=== PATIENT | female | born 1965 | race Caucasian/White ===

== ENCOUNTER 2022-08-23 13:53 | Emergency (ER) | payer BC, SELFPAY ==
--- NOTE | ~2022-08-23 | MR_ITS ---
EXAMINATION: MR BRAIN WITHOUT CONTRAST CLINICAL INFORMATION: Severe headache COMPARISON: MRI brain 11/07/2010 TECHNIQUE: MRI of the brain was obtained using routine sequences without contrast. FINDINGS: Interval evolution of a now chronic infarct within the right splenium of the corpus callosum with resultant previously seen diffusion restriction and decreased now faint T2 signal abnormality. No new acute infarct. No acute infarct. No acute intracranial hemorrhage or extra-axial fluid collection. The ventricles and sulci are normal in size and configuration without significant volume loss or hydrocephalus. No mass lesion, mass effect, or herniation pattern. Normal intracranial arterial and dural venous sinus flow voids. Normal appearance of the midline structures. The orbits are grossly unremarkable. Decreased size of previously seen retention cyst along the lateral wall of the right sphenoid sinus now with a small air-fluid level, otherwise scattered trace paranasal sinus mucosal thickening. No mastoid effusion. Normal marrow signal. Incompletely imaged cervical spondylosis, including a disc osteophyte complex at C3-C4 effacing the ventral thecal sac and encroaching upon the ventral surface of the cord. MR/MR head/brain wo con IMPRESSION: Interval evolution of a now chronic infarct within the right splenium of the corpus callosum. No new acute intracranial process. Decreased size of previously seen retention cyst along the lateral wall of the right sphenoid sinus now with a small air-fluid level
--- NOTE | ~2022-08-23 | CT_ITS ---
EXAMINATION: CT HEAD WITHOUT CONTRAST CLINICAL INFORMATION: headache x 4 days, hx of CVA in 2012 COMPARISON: MRI of the brain 11/07/2010. CT head 11/06/2010 TECHNIQUE: Contiguous axial imaging was performed from the skull base to vertex without intravenous administration of contrast. Coronal and sagittal reformatted images are performed at the CT scanner. [This CT examination was performed using dose optimization techniques as appropriate, variously including the following: *Automated exposure control *Adjustment of mA and/or kV according to patient size (this includes techniques or standardized protocols for targeted exams where dose is matched to indication/reason for exam; i.e. extremities or head) *Use of iterative reconstruction technique] DLP: 571 mGy-cm. FINDINGS: There is no evidence of acute intracranial hemorrhage or territorial infarction. No abnormal mass-effect or midline shift is seen. Jennings to white matter differentiation is well preserved. No extra-axial fluid collections are identified. The ventricles are normal in size. There is no abnormal attenuation within the brain parenchyma. There is no osseous abnormality. The mastoid air cells and visualized portions of the paranasal sinuses are well-aerated. CT/CT head/brain wo IV con IMPRESSION: No acute intracranial pathology.
--- NOTE | 2022-08-23 14:02 | ED.GENADULT ---
HPI - General Adult General Chief complaint: Headache Stated complaint: headaches, right side of face is warm Time Seen by Provider: 08/23/22 16:17 Source: patient Mode of arrival: ambulatory Limitations: no limitations History of Present Illness HPI narrative: 57-year-old female history of CVA in 2010 came in from PCP office for evaluation of 4 days of intermittent headache and a, patient feels bilateral pressure on her face, bilateral tingling of both arms, feels pressure on the face, pressure in both years, no runny nose, no sneezing, no productive, no fever, no chills. Patient gets headache at the regular basis but her doctor sent her to the ER because her history of stroke. No weakness, no numbness, no gait change, no speech change. Light and noise worsening the headache, no neck stiffness, no photophobia. Related Data Previous Rx's Medication Instructions Recorded azithromycin 500 mg tablet 500 mg PO DAILY 5 days #5 tabs 08/23/22 (Zithromax) Allergies Allergy/AdvReac Type Severity Reaction Status Date / Time Penicillins [PCN] Allergy Hives Verified 08/23/22 14:03 From AUGMENTIN Allergy Unknown FEVER Uncoded 08/23/22 14:03 From Augmentin Allergy Unknown FEVER Uncoded 08/23/22 14:03 Review of Systems Review of Systems: All other systems are reviewed and are negative Constitutional: Reports as per HPI and Reports no additional constitutional complaints Eyes: Reports as per HPI and Reports no additional eye complaints Reports system reviewed and no additional complaints, except as documented Cardiovascular: Reports as per HPI and Reports no additional cardiovascular complaints Respiratory: Reports as per HPI and Reports no additional respiratory complaints Gastrointestinal: Reports as per HPI and Reports no additional gastrointestinal complaints Genitourinary: Reports no additional female genitourinary complaints Musculoskeletal: Reports no additional musculoskeletal complaints Skin/Breast: Reports system reviewed and no additional complaints, except as docu Psychiatric: Reports no additional psychiatric complaints Endocrine: Reports no additional endocrine complaints Hematologic/Lymphatic: Reports no additional hematologic/lymphatic complaints Allergic/Immunologic: Reports no additional allergic/immunologic complaints Reports system reviewed and no additional complaints, except as documented and Reports Abnormal speech present [facility] Social History Social History Advance Directives: No Advance Directives Information Provided: Yes Physical Exam ED Vital Signs: Vital Signs - 24 hr 08/23/22 14:04 08/23/22 16:32 08/23/22 20:36 Temperature 97 F 98.7 F 98.3 F Pulse Rate 87 68 73 Respiratory Rate 18 18 16 Blood Pressure 145/82 H 143/77 H 146/74 H Pulse Oximetry 98 99 98 Oxygen Delivery Method Room Air Room Air Room Air BMI result Body Mass Index 35.3 Vital signs have been reviewed as appeared to be correct. Blood pressure normal. Heart rate normal. Respiration rate normal. Temperature normal. Oxygen saturation normal. Appearance: Alert. Oriented X3. No acute distress. Head: Normal external exam. Normocephalic. Atraumatic. No Salvador signs noted. No raccoon eyes noted Eyes: PERRLA. EOMI. Conjunctiva and sclera normal. Eyelids normal. ENT: TM's Normal. Pharynx normal. Uvula midline. Moist mucous membranes. No trismus noted. No drooling noted. No muffled voice noted. Neck: Normal inspection. Neck supple. FROM. No adenopathy. Thyroid Normal. No meningeal signs. No neck mass noted. CVS: Normal heart rate and rhythm. Heart sound normal. No murmurs noted. Pulses normal throughout. Respiratory: No respiratory distress. Painless inspiration. Breath sounds normal. No wheezes/rales/rhonchi noted. Chest nontender. No accessory muscle usage noted or decreased air movement noted. Abdomen: Soft and nontender. Bowel sounds normal in all 4 quadrants. No distention noted. No organomegaly noted. No visible injury noted. Back: No CVA tenderness. Full range of motion noted. Skin: Skin warm and dry. Normal skin color. Normal skin turgor. No rashes/lesions/lacerations noted. Extremities: No lower extremity edema. Extremities exhibit normal range of motion. Extremities nontender. Neuro: Oriented X 3. Cranial nerve exam: II-XII are grossly intact No motor deficit. No sensory deficit. Reflexes normal. NIH Stroke Scale Time: 16:32 Level of Consciousness: Alert Level of Consciousness Questions: Answers both questions correctly Level of Consciousness Commands: Performs both tasks correctly Best Gaze: Normal Visual: No visual loss Facial Palsy: Normal Motor Arm (Right): No drift Motor Arm (Left): No drift Motor Leg (Right): No drift Motor Leg (Left): No drift Limb Ataxia: Absent Sensory: Normal Best Language: No aphasia Dysarthia: Normal Extinction and Inattention: No abnormality Score: 0 Course Course Course Narrative: This is an RME: Additional HPI, ROS, PE not included below will be deferred to primary provider. This is a [id number], with a hx of CVA in 2011 not on anticoagulants, HLD, HTN, fibromyalgia, chronic back pain, presenting to the emergency department with complaints of headache starting saturday night. Believed that she had a sinus infection originally. States that she is feeling tingling in bilateral hands. Headache is intermittent, waxing and waning in pain. VSS. No focal deficits on examination. Plan: Labs, CT head Reevaluation(s) Reevaluation #1: Normal neuro exam, CT head/MRI had are unremarkable for acute infarction, patient do not have a typical exam for sinusitis will start the patient on Zithromax and follow up with her PCP. Time: 19:14 Medications Administered Discontinued Medications Generic Name Dose Route Start Last Admin Trade Name Freq PRN Reason Stop Dose Admin Azithromycin 500 mg 08/23/22 16:33 08/23/22 17:15 Azithromycin 500 Mg Tablet PO 08/23/22 16:34 500 mg ONCE ONE Administration Lorazepam 1 mg 08/23/22 19:43 08/23/22 19:46 Lorazepam 1 Mg Tablet PO 08/23/22 19:44 1 mg ONCE ONE Administration Medical Decision Making Differential Diagnosis Differential Diagnoses: The differential diagnosis associated with the presentation includes (Hemorrhagic stroke, ischemic stroke, sinusitis, electrolyte abnormalities, severe anemia.) Admission/Observation Consideration of admission/observation: Escalation of care including admission/observation considered Lab Data MDM Lab Attestation statement: I reviewed the patient's lab results. 08/23/22 14:23 08/23/22 14:23 Labs: Lab Results 08/23/22 08/23/22 08/23/22 Range/Units 14:23 14:23 14:23 WBC 9.7 (4.8-10.8) X10*3/uL RBC 4.92 (4.20-5.50) X10*6/uL Hgb 14.8 (12.0-16.0) g/dl Hct 44.5 (37.0-47.0) % MCV 90.4 (80.0-98.0) fL MCH 30.1 (27.0-33.0) pg MCHC 33.3 (31.0-35.0) g/dl RDW 13.8 (11.0-16.0) % Plt Count 333 (160-400) X10*3/uL MPV 9.4 (9.4-12.3) fL Immature Gran % (Auto) 0.4 (0.0-0.4) % Neut % (Auto) 43.0 L (45-73) % Lymph % (Auto) 43.6 H (20-40) % Barton % (Auto) 8.3 (2-11) % Eos % (Auto) 3.5 (0-4) % Baso % (Auto) 1.2 (0-2) % Lymph # (Auto) 4.2 (1.2-4.9) X10*3/uL Barton # (Auto) 0.8 (0.1-1.2) X10*3/uL Eos # (Auto) 0.3 (0.0-0.4) X10*3/uL Baso # (Auto) 0.1 (0.0-0.2) X10*3/uL Abs Immat Gran (auto) 0.04 H (0.00-0.03) X10*3/uL Absolute Neuts (auto) 4.2 (2.0-8.3) x10*3/uL Absolute Nucleated RBC 0.000 (0.0-0.012) X10*3/uL Nucleated RBC % (auto) 0.0 (0.0-0.2) /100WBC PT 10.4 (10.0-13.1) SEC INR 0.9 (0.9-1.1) APTT 29.6 (26.0-36.4) SEC Sodium 141 (135-145) mmol/L Potassium 4.1 (3.3-5.1) mmol/L Chloride 106 (96-108) mmol/L Carbon Dioxide 29 (22-29) mmol/L Anion Gap 10 L (12-20) BUN 12 (9-16) mg/dL Creatinine 0.87 (0.5-1.4) mg/dL Estim Creat Clear Calc 66.5 Estimated GFR > 60 Random Glucose 90 (60-115) mg/dL Calcium 9.4 (8.4-10.2) mg/dL Magnesium (1.6-2.6) mg/dL Total Bilirubin 0.3 (0.0-1.0) mg/dL Direct Bilirubin 0.1 (0.0-0.5) mg/dL AST 41 H (5-31) U/L ALT 45 H (0-31) U/L Alkaline Phosphatase 92 (39-117) U/L Total Protein 8.1 H (6.5-8.0) g/dL Albumin 4.5 (3.5-5.0) g/dL Influenza Type A (PCR) (Negative) Influenza Type B (PCR) (Negative) RSV RNA Qual (PCR) (Negative) SARS-CoV-2 RNA (RT-PCR) (Negative) 08/23/22 08/23/22 Range/Units 14:23 16:52 WBC (4.8-10.8) X10*3/uL RBC (4.20-5.50) X10*6/uL Hgb (12.0-16.0) g/dl Hct (37.0-47.0) % MCV (80.0-98.0) fL MCH (27.0-33.0) pg MCHC (31.0-35.0) g/dl RDW (11.0-16.0) % Plt Count (160-400) X10*3/uL MPV (9.4-12.3) fL Immature Gran % (Auto) (0.0-0.4) % Neut % (Auto) (45-73) % Lymph % (Auto) (20-40) % Barton % (Auto) (2-11) % Eos % (Auto) (0-4) % Baso % (Auto) (0-2) % Lymph # (Auto) (1.2-4.9) X10*3/uL Barton # (Auto) (0.1-1.2) X10*3/uL Eos # (Auto) (0.0-0.4) X10*3/uL Baso # (Auto) (0.0-0.2) X10*3/uL Abs Immat Gran (auto) (0.00-0.03) X10*3/uL Absolute Neuts (auto) (2.0-8.3) x10*3/uL Absolute Nucleated RBC (0.0-0.012) X10*3/uL Nucleated RBC % (auto) (0.0-0.2) /100WBC PT (10.0-13.1) SEC INR (0.9-1.1) APTT (26.0-36.4) SEC Sodium (135-145) mmol/L Potassium (3.3-5.1) mmol/L Chloride (96-108) mmol/L Carbon Dioxide (22-29) mmol/L Anion Gap (12-20) BUN (9-16) mg/dL Creatinine (0.5-1.4) mg/dL Estim Creat Clear Calc Estimated GFR Random Glucose (60-115) mg/dL Calcium (8.4-10.2) mg/dL Magnesium 2.1 (1.6-2.6) mg/dL Total Bilirubin (0.0-1.0) mg/dL Direct Bilirubin (0.0-0.5) mg/dL AST (5-31) U/L ALT (0-31) U/L Alkaline Phosphatase (39-117) U/L Total Protein (6.5-8.0) g/dL Albumin (3.5-5.0) g/dL Influenza Type A (PCR) NEGATIVE (Negative) Influenza Type B (PCR) NEGATIVE (Negative) RSV RNA Qual (PCR) NEGATIVE (Negative) SARS-CoV-2 RNA (RT-PCR) NEGATIVE (Negative) Independent Interpretation I performed an independent interpretation of an: CT Scan (Head CT: No acute pathology.) Interpretation: MRI of the brain:nterval evolution of a now chronic infarct within the right splenium of the corpus callosum. No new acute intracranial process. Decreased size of previously seen retention cyst along the lateral wall of the right sphenoid sinus now with a small air-fluid level ? Radiology Impression Discussion of test interpretation with radiology: I have reviewed the radiologist's reading. Discharge Plan Discharge Clinical Impression: Headache, Sinusitis Patient Disposition: Home, Self-Care Instructions: Sinusitis (ED) Prescriptions: New azithromycin [Zithromax] 500 mg tablet 500 mg PO DAILY 5 Days Qty: 5 0RF Referrals: Denise Case MD [Primary Care Provider] -
[2022-08-23 14:04] VITALS: BP 145/82; PULSE 87; RESP 18; TEMP 36.1; O2SAT 98; BMI 35.3
[2022-08-23 14:27] LABS: MANUAL DIFF FLAG NO
[2022-08-23 14:31] LABS: Basophils Absolute Auto 0.1 X10*3/uL (0.0-0.2); Basophils Percent Auto 1.2 % (0-2); Eosinophils Absolute Auto 0.3 X10*3/uL (0.0-0.4); Eosinophils Percent Auto 3.5 % (0-4); Hematocrit 44.5 % (37.0-47.0); Hemoglobin 14.8 g/dl (12.0-16.0); Imm Gran Abs Auto 0.04 X10*3/uL (0.00-0.03); Imm Gran Pct Auto 0.4 % (0.0-0.4); Lymphocytes Absolute Auto 4.2 X10*3/uL (1.2-4.9); Lymphocytes Percent Auto 43.6 % (20-40); Mean Corpuscular HGB Conc 33.3 g/dl (31.0-35.0); Mean Corpuscular Hemoglobin 30.1 pg (27.0-33.0); Mean Corpuscular Volume 90.4 fL (80.0-98.0); Mean Platelet Volume 9.4 fL (9.4-12.3); Monocytes Absolute Auto 0.8 X10*3/uL (0.1-1.2); Monocytes Percent Auto 8.3 % (2-11); Neutrophils Absolute Auto 4.2 x10*3/uL (2.0-8.3); Platelet Count 333 X10*3/uL (160-400); Red Blood Count 4.92 X10*6/uL (4.20-5.50); Red Cell Distribution Width 13.8 % (11.0-16.0); White Blood Count 9.7 X10*3/uL (4.8-10.8)
[2022-08-23 14:39] LABS: INTERNATIONAL NORM RATIO 0.9 (0.9-1.1); Prothrombin Time 10.4 SEC (10.0-13.1)
[2022-08-23 14:42] LABS: Partial Thromboplastin Time 29.6 SEC (26.0-36.4)
[2022-08-23 14:46] LABS: Magnesium 2.1 mg/dL (1.6-2.6)
[2022-08-23 14:51] LABS: Alanine Aminotransferase 45 U/L (0-31); Albumin Level 4.5 g/dL (3.5-5.0); Alkaline Phosphatase 92 U/L (39-117); Anion Gap 10 (12-20); Aspartate Amino Transferase 41 U/L (5-31); Bilirubin Direct 0.1 mg/dL (0.0-0.5); Bilirubin Total 0.3 mg/dL (0.0-1.0); Blood Urea Nitrogen 12 mg/dL (9-16); Calcium 9.4 mg/dL (8.4-10.2); Carbon Dioxide 29 mmol/L (22-29); Chloride 106 mmol/L (96-108); Creatinine Clr Calc Pharmacy 66.5; Estimated Glomerular Filt Rate > 60; Glucose Random 90 mg/dL (60-115); Potassium 4.1 mmol/L (3.3-5.1); Sodium 141 mmol/L (135-145); Total Protein 8.1 g/dL (6.5-8.0)
[2022-08-23 16:32] VITALS: BP 143/77; PULSE 68; RESP 18; TEMP 37.1; O2SAT 99
[2022-08-23] MEDS: Azithromycin 500 MG TABLET PO (17:15)
[2022-08-23 17:43] LABS: Influenza A PCR NEGATIVE (Negative); Influenza B PCR NEGATIVE (Negative); Resp Syncy Virus RNA Qual PCR NEGATIVE (Negative); SARS COV2 PCR INHOUSE NEGATIVE (Negative)
--- NOTE | 2022-08-23 19:24 | PC.NURSE ---
Pt ca&ox3, no signs of distress. Resting comfortably. wctm.
[2022-08-23] MEDS: LORazepam 1 MG TABLET PO (19:46)
[2022-08-23 20:36] VITALS: BP 146/74; PULSE 73; RESP 16; TEMP 36.8; O2SAT 98
== END 2022-08-23 21:22 | disposition home or self-care (01) ==
PROVIDERS: Physician Assistant Medical; Emergency Provider Emergency Medicine; PCP Internal Medicine
DX: R51.9 Headache, unspecified (principal); J32.9 Chronic sinusitis, unspecified; Z20.822 Contact with and (suspected) exposure to COVID-19; Z20.828 Contact with and (suspected) exposure to other viral communicable diseases; R20.2 Paresthesia of skin; I10 Essential (primary) hypertension; E78.5 Hyperlipidemia, unspecified; M79.7 Fibromyalgia; R29.700 NIHSS score 0; Z86.73 Personal history of transient ischemic attack (TIA), and cerebral infarction without residual deficits; Z79.899 Other long term (current) drug therapy
CPT/HCPCS: 0241U; 36415; 70450; 70551; 80048; 80076; 83735; 85025; 85610; 85730; 99284; 99285

== ENCOUNTER 2023-08-26 06:29 | Day surgery (SDC) | payer BC, SELFPAY ==
[2023-08-14 10:21] VITALS: BMI 34.5
--- NOTE | 2023-08-22 11:57 | P.CONAN_ITS ---
HPI - Anesthesia Eval Consult details Narrative: 58yo F for Left Cataract Extraction IOL Insertion Medically optimized No previous on record ON LICENSE OF [facility] Past Medical History Medical History (Updated 08/14/23 @ 10:20 by Almita Villarreal RN) Family history of anesthesia complication Back pain Arthritis Factor V Leiden Hyperlipemia Renal stones RLS (restless legs syndrome) Migraines Hepatic steatosis GERD (gastroesophageal reflux disease) CVA (cerebral vascular accident) Asthma Fibromyalgia HTN (hypertension) Diabetes Surgical History Surgical History (Updated 08/14/23 @ 10:21 by Almita Villarreal RN) History of bilateral carpal tunnel release H/O colonoscopy History of extraction of renal calculus Social History Social History Housing Other:: 2 family house Are you a primary palliative care physician to a significant other at home: No Do you presently have visiting nurse or other home services: No Patient Tobacco Use Status: Never used Tobacco Use of substances other than those prescribed or required for medical reasons: No Have you been hit, kicked, punched, or otherwise hurt by someone within the past year? If so, by whom?: No Are you DNR?: No Advance Directives: No Advance Directives Information Provided: No Advance Directives on File: No Recently lost weight without trying: No Eating poorly because of decreased appetite: No Nutrition Risks: No Nutritional Risk Patient : No FDLMP: N/A Meds Allergies Allergy/AdvReac Type Severity Reaction Status Date / Time amoxicillin [From Augmentin] Allergy Intermediate Fever Verified 06/19/23 08:50 clavulanic acid Allergy Intermediate Fever Verified 06/19/23 08:50 [From Augmentin] Penicillins [PCN] Allergy Intermediate Hives Verified 08/14/23 09:43 hydrocodone AdvReac Intermediate Vomiting Verified 08/14/23 10:24 oxycodone AdvReac Intermediate Vomiting Verified 08/14/23 10:24 Home Medications ?Medication ?Instructions ?Recorded ?Confirmed ?Last Taken ?Type albuterol sulfate 90 mcg/actuation 2 puff inhalation Q4-6H PRN 08/14/23 08/14/23 Unknown History aerosol inhaler (Ventolin HFA) Shortness Of Breath Or Wheezing amlodipine 5 mg tablet 5 mg PO BEDTIME 08/14/23 08/14/23 Unknown History cyclobenzaprine 5 mg tablet 5 mg PO BEDTIME PRN muscle spasm 08/14/23 08/14/23 Unknown History duloxetine 60 mg capsule,delayed 60 mg PO DAILY 08/14/23 08/14/23 Unknown History release fluticasone propionate 110 1 puff inhalation BID 08/14/23 08/14/23 Unknown History mcg/actuation HFA aerosol inhaler gabapentin 300 mg capsule 300 mg PO QAM 08/14/23 08/14/23 Unknown History lisinopril 40 mg tablet 40 mg PO DAILY 08/14/23 08/14/23 Unknown History multivitamin 1 tab PO DAILY 08/14/23 08/14/23 Unknown History omeprazole 20 mg tablet,delayed 20 mg PO BEDTIME 08/14/23 08/14/23 Unknown History release pravastatin 20 mg tablet 20 mg PO BEDTIME 08/14/23 08/14/23 Unknown History zolpidem 5 mg tablet 5 mg PO BEDTIME insomnia 08/14/23 08/14/23 Unknown History Exam Height,Weight and Vital Signs: Height 4 ft 11 in Weight 77.564 kg Assessment and Plan Assessment Anesthesia Assessment: Chart Reviewed
[2023-08-26] MEDS: Tropicamide 1 % Ophth Sol 3 ML BTL 1 DROP EYE-LEFT ×3 (07:15→07:39)
[2023-08-26] MEDS: Tetracaine HCl/PF 0.5% Oph Sol 4 ML DROPS 1 DROP EYE-LEFT (07:15)
[2023-08-26] MEDS: Cyclopentolate 1 % Ophth Sol 2 ML DRPBTL 1 DROP EYE-LEFT ×3 (07:15→07:40)
[2023-08-26] MEDS: Lactated Ringers 500 ML 50 ML IV (07:15)
[2023-08-26] MEDS: Phenylephrine HCL 2.5% Oph SoL 2 ML BOTTLE 1 DROP EYE-LEFT ×3 (07:15→07:39)
[2023-08-26] MEDS: Ketorolac Tromethamine 0.5% Op 10 ML DROPS 1 DROP EYE-LEFT ×3 (07:27→07:40)
[2023-08-26 07:29] VITALS: BP 139/66; PULSE 90; RESP 18; TEMP 36.7; O2SAT 98
--- NOTE | 2023-08-26 07:29 | P.CONAN_ITS ---
[facility] Past Medical History Medical History (Updated 08/14/23 @ 10:20 by Almita Villarreal RN) Family history of anesthesia complication Back pain Arthritis Factor V Leiden Hyperlipemia Renal stones RLS (restless legs syndrome) Migraines Hepatic steatosis GERD (gastroesophageal reflux disease) CVA (cerebral vascular accident) Asthma Fibromyalgia HTN (hypertension) Diabetes Family History Family history of problems with anesthesia: No Surgical History Surgical History (Updated 08/14/23 @ 10:21 by Almita Villarreal RN) History of bilateral carpal tunnel release H/O colonoscopy History of extraction of renal calculus History of Problems with Anesthesia: No Social History Social History Housing Other:: 2 family house Are you a primary career development facilitator to a significant other at home: No Do you presently have visiting nurse or other home services: No Patient Tobacco Use Status: Never used Tobacco Use of substances other than those prescribed or required for medical reasons: No Have you been hit, kicked, punched, or otherwise hurt by someone within the past year? If so, by whom?: No Are you DNR?: No Advance Directives: No Advance Directives Information Provided: Yes Advance Directives on File: No Recently lost weight without trying: No Eating poorly because of decreased appetite: No Nutrition Risks: No Nutritional Risk Patient : No FDLMP: N/A Meds Allergies Allergy/AdvReac Type Severity Reaction Status Date / Time amoxicillin [From Augmentin] Allergy Intermediate Fever Verified 06/19/23 08:50 clavulanic acid Allergy Intermediate Fever Verified 06/19/23 08:50 [From Augmentin] Penicillins [PCN] Allergy Intermediate Hives Verified 08/14/23 09:43 hydrocodone AdvReac Intermediate Vomiting Verified 08/14/23 10:24 oxycodone AdvReac Intermediate Vomiting Verified 08/14/23 10:24 Active Medications: Current Medications Albuterol Sulfate (Albuterol Sulfate (0.083%) 2.5 Mg/3 Ml Vial.Neb) 2.5 mg INHALE ONCE PRN PRN Reason: Shortness of Breath/Wheezing Lactated Ringer's (Lr) 500 mls @ 50 mls/hr IV .Q10H GIOVANNA Stop: 08/26/23 17:14 Last Admin: 08/26/23 07:15 Dose: 50 mls/hr Povidone Iodine (Povidone Iodine 5 % [facility] Soln 30 Ml Bottle) 1 appl EYE-LEFT PREOP PRN PRN Reason: Pre-Op Surgical Implant Prophy Home Medications ?Medication ?Instructions ?Recorded ?Confirmed ?Last Taken ?Type albuterol sulfate 90 mcg/actuation 2 puff inhalation Q4-6H PRN 08/14/23 08/14/23 Unknown History aerosol inhaler (Ventolin HFA) Shortness Of Breath Or Wheezing amlodipine 5 mg tablet 5 mg PO BEDTIME 08/14/23 08/14/23 Unknown History cyclobenzaprine 5 mg tablet 5 mg PO BEDTIME PRN muscle spasm 08/14/23 08/14/23 Unknown History duloxetine 60 mg capsule,delayed 60 mg PO DAILY 08/14/23 08/14/23 Unknown History release fluticasone propionate 110 1 puff inhalation BID 08/14/23 08/14/23 Unknown History mcg/actuation HFA aerosol inhaler gabapentin 300 mg capsule 300 mg PO QAM 08/14/23 08/14/23 Unknown History lisinopril 40 mg tablet 40 mg PO DAILY 08/14/23 08/14/23 Unknown History multivitamin 1 tab PO DAILY 08/14/23 08/14/23 Unknown History omeprazole 20 mg tablet,delayed 20 mg PO BEDTIME 08/14/23 08/14/23 Unknown History release pravastatin 20 mg tablet 20 mg PO BEDTIME 08/14/23 08/14/23 Unknown History zolpidem 5 mg tablet 5 mg PO BEDTIME insomnia 08/14/23 08/14/23 Unknown History Exam Height,Weight and Vital Signs: Height 4 ft 11 in Weight 77.564 kg Airway Mallampati Class: II TM Dist: >3cm Neck ROM: Full Assessment and Plan Assessment Anesthesia Assessment: Anesthesia Plan Discussed and Chart Reviewed Final Anesthetic Review Family History of Problems with Anesthesia: No History of Problems with Anesthesia: No NPO: Yes ASA Class: III Final Preanesthetic Review: No Changes in Pt Med Stat, Meds/Allgs Chart Reviewed, Consent Obtained/Reviewed and Anes Risks/Benef Reviewed Patient Risk: Intermediate Procedure Risk: Low Anesthetic Plan Anesthetic Plan: MAC: Disposition: Standard PACU
--- NOTE | 2023-08-26 08:01 | MHC.SHP ---
Pre-Procedural Eval Section A - 24 Hr Update-Section A only Date of Service: 08/26/23 The patient is an INPATIENT: No Changes since office visit: No Cold of Flu in the past 2 weeks, No New Medical Problems, No Changes in Medication and No Patient answered all questions The patient has been examined within 24 hours of the surgical procedure. The History & Physical has been completed within 30 days and I have reviewed it.: Yes Section B - Complete if H&P > 30 days Chief Complaint: cataract Allergies: Allergies Allergy/AdvReac Type Severity Reaction Status Date / Time amoxicillin [From Augmentin] Allergy Intermediate Fever Verified 06/19/23 08:50 clavulanic acid Allergy Intermediate Fever Verified 06/19/23 08:50 [From Augmentin] Penicillins [PCN] Allergy Intermediate Hives Verified 08/14/23 09:43 hydrocodone AdvReac Intermediate Vomiting Verified 08/14/23 10:24 oxycodone AdvReac Intermediate Vomiting Verified 08/14/23 10:24 Plan Diagnosis/Plan: Unchanged I have reviewed the history and physical and performed a pertinent physical examination on my patient. No changes have occurred unless specified. Time Spent With Patient Time: Total time managing care of this patient today ____ minutes.
--- NOTE | 2023-08-26 08:02 | HO.PNOPHT ---
Ophthalmology Procedure Procedure Date of Service: 08/26/23 Ophthalmology Viscoelastic: Healon Duet Dual Pack Pro Ophthalmology Lenses: IOL Acrysof MP - [id number] (10.5) Procedure Notes: PREOPERATIVE DIAGNOSIS: Decreased visual acuity left eye secondary to cataract POSTOPERATIVE DIAGNOSIS: Same PROCEDURE: Left cataract extraction with intraocular lens insertion SURGEON: Shad Lutz M.D. ANESTHESIA: Topical/MAC ESTIMATED BLOOD LOSS: None COMPLICATIONS: None After obtaining informed consent, the patient was brought to the operation room suite and placed in the supine position. After adequate sedation per anesthesia, topical drops of Tetracaine were given to the left eye. The eye was then prepped and draped in the usual sterile fashion. The operating room microscope was then positioned over the operative eye and a lid speculum placed. A paracentesis was created. Viscoelastic was then instilled into the anterior chamber. A three plane incision was then created temporally, utilizing a 2.85 mm keratome. Capsulotomy forceps were then utilized to create a circular tear capsulotomy. Hydrodissection and hydrodelineation were carried out until adequate mobilization of the nucleus occurred. Phacoemulsification was then utilized to remove the dense central nucleus followed by removal of the cortical material utilizing the automated aspiration irrigation unit. Viscoat elastic was instilled into the posterior capsular bag followed by placement of a posterior chamber intraocular lens without difficulty. The residual Viscoat elastic was then removed utilizing the automated IA machine. The wound was check and found to be watertight. The patient tolerated the procedure well and the lid speculum was removed. Intracameral injection of Vigamox 0.1 mL followed by a subtenon injection of Kenalog-40 0.2 mL were administered. The patient will be seen in the a.m.
--- NOTE | 2023-08-26 08:03 | PC.NURSE ---
IV inserted by Dr. Ziegler
--- NOTE | 2023-08-26 08:04 | PC.NURSE ---
Dr. iZegler aware of T depression on 3 lead EKG. reviewed notes. no interventions. okay to proceed.
[2023-08-26 08:33] VITALS: BP 104/50; PULSE 78; RESP 16; TEMP 36.1; O2SAT 95
[2023-08-26 08:38] VITALS: BP 109/54; PULSE 76; RESP 16; O2SAT 96
[2023-08-26 08:48] VITALS: BP 127/67; PULSE 70; RESP 16; O2SAT 94
[2023-08-26 09:03] VITALS: BP 124/76; PULSE 69; RESP 16; O2SAT 97
[2023-08-26 09:19] VITALS: BP 112/63; PULSE 69; RESP 16; TEMP 36.4; O2SAT 100
== END 2023-08-26 09:22 | disposition home or self-care (01) ==
PROVIDERS: PCP Internal Medicine; Visit Provider Ophthalmology
PROC: (CPT 66985; principal; 2023-08-26 08:00)
DX: H25.12 Age-related nuclear cataract, left eye (principal); H52.4 Presbyopia; H18.413 Arcus senilis, bilateral; I10 Essential (primary) hypertension; D68.51 Activated protein C resistance; E11.36 Type 2 diabetes mellitus with diabetic cataract; E11.29 Type 2 diabetes mellitus with other diabetic kidney complication; E78.5 Hyperlipidemia, unspecified; M79.7 Fibromyalgia; G43.909 Migraine, unspecified, not intractable, without status migrainosus; Z86.73 Personal history of transient ischemic attack (TIA), and cerebral infarction without residual deficits; Z79.899 Other long term (current) drug therapy; Z88.0 Allergy status to penicillin; Z88.5 Allergy status to narcotic agent; Z88.1 Allergy status to other antibiotic agents
CPT/HCPCS: 66984; J2250; J3010; J3301; V2630

== ENCOUNTER 2023-09-09 06:24 | Day surgery (SDC) | payer BC, SELFPAY ==
[2023-08-14 10:25] VITALS: BMI 34.5
[2023-09-09] VITALS (8 sets, daily range): BP systolic 89–127; BP diastolic 45–71; PULSE 58–73; RESP 16–18; TEMP 36.1–36.2; O2SAT 91–99; BMI 35.1
[2023-09-09] MEDS: Tetracaine HCl/PF 0.5% Oph Sol 4 ML DROPS 1 DROP EYE-RIGHT (06:56)
[2023-09-09] MEDS: Cyclopentolate 1 % Ophth Sol 2 ML DRPBTL 1 DROP EYE-RIGHT ×3 (06:56→07:01)
[2023-09-09] MEDS: Tropicamide 1 % Ophth Sol 3 ML BTL 1 DROP EYE-RIGHT ×3 (06:56→07:01)
[2023-09-09] MEDS: Ketorolac Tromethamine 0.5% Op 10 ML DROPS 1 DROP EYE-RIGHT ×3 (06:56→07:02)
[2023-09-09] MEDS: Phenylephrine HCL 2.5% Oph SoL 2 ML BOTTLE 1 DROP EYE-RIGHT ×3 (06:57→07:02)
--- NOTE | 2023-09-09 07:24 | P.PCNO_ITS ---
Ophthalmology Procedure Procedure Date of Service: 09/09/23 Ophthalmology Viscoelastic: Healon Duet Dual Pack Pro Ophthalmology Lenses: IOL Acrysof MP - [id number] (12.5) Procedure Notes: PREOPERATIVE DIAGNOSIS: Decreased visual acuity right eye secondary to cataract POSTOPERATIVE DIAGNOSIS: Same PROCEDURE: Right cataract extraction with intraocular lens insertion SURGEON: Shad Lutz M.D. ANESTHESIA: Topical/MAC ESTIMATED BLOOD LOSS: None COMPLICATIONS: None After obtaining informed consent, the patient was brought to the operating room suite and placed in the supine position. After adequate sedation per anesthesia, topical drops of Tetracaine were given to the right eye. The eye was then prepped and draped in the usual sterile fashion. The operating room microscope was then positioned over the operative eye and a lid speculum placed. A paracentesis was created. Viscoelastic was then instilled into the anterior chamber. A three plane incision was then created temporally, utilizing a 2.85 mm keratome. Capsulotomy forceps were then utilized to create a circular tear capsulotomy. Hydrodissection and hydrodelineation were carried out until adequate mobilization of the nucleus occurred. Phacoemulsification was then utilized to remove the dense central nu cleus followed by removal of the cortical material utilizing the automated aspiration irrigation unit. Viscoelastic was instilled into the posterior capsular bag followed by placement of a posterior chamber intraocular lens without difficulty. The residual Viscoelastic was then removed utilizing the automated IA machine. The wound was checked and found to be watertight. The patient tolerated the procedure well and the lid speculum was removed. Intracameral injection of Vigamox 0.1 mL followed by a subtenon injection of Kenalog-40 0.2 mL were administered. The patient will be seen in the a.m.
--- NOTE | 2023-09-09 07:24 | MHC.SHP ---
Pre-Procedural Eval Section A - 24 Hr Update-Section A only Date of Service: 09/09/23 The patient is an INPATIENT: No Changes since office visit: No Cold of Flu in the past 2 weeks, No New Medical Problems, No Changes in Medication and No Patient answered all questions The patient has been examined within 24 hours of the surgical procedure. The History & Physical has been completed within 30 days and I have reviewed it.: Yes Section B - Complete if H&P > 30 days Chief Complaint: Age-related nuclear cataract, right eye Allergies: Allergies Allergy/AdvReac Type Severity Reaction Status Date / Time amoxicillin [From Augmentin] Allergy Intermediate Fever Verified 09/09/23 06:30 clavulanic acid Allergy Intermediate Fever Verified 09/09/23 06:30 [From Augmentin] Penicillins [PCN] Allergy Intermediate Hives Verified 09/09/23 06:30 hydrocodone AdvReac Intermediate Vomiting Verified 09/09/23 06:30 oxycodone AdvReac Intermediate Vomiting Verified 09/09/23 06:30 Plan Diagnosis/Plan: Unchanged I have reviewed the history and physical and performed a pertinent physical examination on my patient. No changes have occurred unless specified. Time Spent With Patient Time: Total time managing care of this patient today ____ minutes.
== END 2023-09-09 09:12 | disposition home or self-care (01) ==
PROVIDERS: PCP Internal Medicine; Visit Provider Ophthalmology
PROC: (CPT 66985; principal; 2023-09-09 07:30)
DX: H25.11 Age-related nuclear cataract, right eye (principal); H52.4 Presbyopia; H18.413 Arcus senilis, bilateral; I10 Essential (primary) hypertension; E11.9 Type 2 diabetes mellitus without complications; D68.51 Activated protein C resistance; Z86.73 Personal history of transient ischemic attack (TIA), and cerebral infarction without residual deficits; Z79.899 Other long term (current) drug therapy; Z88.0 Allergy status to penicillin; Z88.1 Allergy status to other antibiotic agents; Z88.5 Allergy status to narcotic agent
CPT/HCPCS: 66984; J2250; J3010; J3301; V2630

== ENCOUNTER 2023-10-17 07:22 | Emergency (ER) | payer BC, SELFPAY ==
--- NOTE | ~2023-10-17 | XR_ITS ---
EXAMINATION: XR ANKLE, LEFT CLINICAL INFORMATION: Unable to bear weight COMPARISON: None available. TECHNIQUE: AP, lateral, and mortise views of the left ankle. FINDINGS: BONES: Bony structures are intact. Sharp plantar calcaneal spur is present. There is no focal bone destruction or periosteal reaction seen. JOINTS: Alignment of joints is normal. SOFT TISSUE: Soft tissue is normal. No radiopaque foreign body or abnormal air collection is seen. XR/XR ankle LT min 3V IMPRESSION: 1. No acute fracture or dislocation. 2. Sharp plantar calcaneal spur.
[2023-10-17 07:25] VITALS: BP 143/56; PULSE 87; RESP 16; TEMP 36.4; O2SAT 99; BMI 34.3
--- NOTE | 2023-10-17 07:48 | ED_ITS ---
HPI - Extremity Injury (Lower) General Chief Complaint: Extremity Injury, Lower Stated Complaint: l ankle swelling Time Seen by Provider: 10/17/23 07:29 Source: patient, RN notes reviewed and old records reviewed Mode of arrival: ambulatory History of Present Illness ED Provider: Lucinda Moody PA-C HPI Narrative: 58-year-old female with a past medical history of factor 5 Leiden, HLD, renal stones, RLS. GERD, CVA, asthma, fibromyalgia, HTN, diabetes, presenting to the ED complaining of left ankle pain and swelling s/p rolling yesterday while walking to vehicle. Denies fall to ground, head trauma or LOC. Denies injury to the area. Has been minimally ambulatory secondary to pain Related Data Home Medications ?Medication ?Instructions ?Recorded ?Confirmed albuterol sulfate 90 mcg/actuation 2 puff inhalation Q4-6H PRN 08/14/23 08/14/23 aerosol inhaler (Ventolin HFA) Shortness Of Breath Or Wheezing amlodipine 5 mg tablet 5 mg PO BEDTIME 08/14/23 08/14/23 cyclobenzaprine 5 mg tablet 5 mg PO BEDTIME PRN muscle spasm 08/14/23 08/14/23 duloxetine 60 mg capsule,delayed 60 mg PO DAILY 08/14/23 08/14/23 release fluticasone propionate 110 1 puff inhalation BID 08/14/23 08/14/23 mcg/actuation HFA aerosol inhaler gabapentin 300 mg capsule 300 mg PO QAM 08/14/23 08/14/23 lisinopril 40 mg tablet 40 mg PO DAILY 08/14/23 08/14/23 multivitamin 1 tab PO DAILY 08/14/23 08/14/23 omeprazole 20 mg tablet,delayed 20 mg PO BEDTIME 08/14/23 08/14/23 release pravastatin 20 mg tablet 20 mg PO BEDTIME 08/14/23 08/14/23 zolpidem 5 mg tablet 5 mg PO BEDTIME insomnia 08/14/23 08/14/23 Allergies Allergy/AdvReac Type Severity Reaction Status Date / Time amoxicillin [From Augmentin] Allergy Intermediate Fever Verified 10/17/23 07:26 clavulanic acid Allergy Intermediate Fever Verified 10/17/23 07:26 [From Augmentin] Penicillins [PCN] Allergy Intermediate Hives Verified 10/17/23 07:26 hydrocodone AdvReac Intermediate Vomiting Verified 10/17/23 07:26 oxycodone AdvReac Intermediate Vomiting Verified 10/17/23 07:26 Review of Systems Review of Systems: Constitutional: No Fever, No Chills ENT/Mouth: No Ear Pain, No Nasal Congestion, No sore throat, No Rhinorrhea, No Swallowing Difficulty Cardiovascular: No Chest Pain, No SOB Respiratory: No Cough Gastrointestinal: No Nausea, No Vomiting, No Diarrhea, No Constipation, No Abdominal pain Musculoskeletal: + joint pain, No Myalgias, + Joint Swelling Skin: No Skin Lesions, No rash Neuro: No Weakness, No Numbness, No Paresthesias Yes all other systems are reviewed and are negative Constitutional: Constitutional: Reports as per [facility] Past Medical History Attestation statement: The following information was validated with the patient. Source: old records reviewed Medical History Family history of anesthesia complication Back pain Arthritis Factor V Leiden Hyperlipemia Renal stones RLS (restless legs syndrome) Migraines Hepatic steatosis GERD (gastroesophageal reflux disease) CVA (cerebral vascular accident) Asthma Fibromyalgia HTN (hypertension) Diabetes Surgical History History of bilateral carpal tunnel release H/O colonoscopy History of extraction of renal calculus Social History Social History Housing Other:: 2 family house Are you a primary assurance services manager health care to a significant other at home: No Do you presently have visiting nurse or other home services: No Patient Tobacco Use Status: Never used Tobacco Advance Directives: No Advance Directives Information Provided: No Physical Exam Vital Signs: Vital Signs: Last Vital Signs Temp 98.0 F 10/17/23 08:27 Pulse 73 10/17/23 08:27 Resp 18 10/17/23 08:27 BP 151/78 H 10/17/23 08:27 Pulse Ox 98 10/17/23 08:27 O2 Del Method Room Air 10/17/23 08:27 BMI result Body Mass Index 34.3 Const: General: cooperative, healthy appearing and no acute distress Orientation/consciousness: patient oriented x3 Limitations: no limitations HEENT: Head: Yes normal to inspection and Yes atraumatic Ears: hearing grossly normal bilaterally General nose exam: Normal external nose present Face and sinus: Yes normal facial exam Eyes: General: appearance normal, both eyes and all related structures EOM: EOMs intact bilaterally Neck: Neck: Yes normal visual inspection and Yes no meningeal signs Resp: Effort & Inspection: normal respiratory effort and no respiratory distress Auscultation: clear to auscultation bilaterally Cardio: Rate: regular rate Heart sounds: S1 normal heart sound present and S2 normal heart sound present Skin: Rashes: no rashes Wounds: no wounds Neuro: General: patient oriented x3, tone normal and no meningeal signs Cranial nerves: Yes CN's II-XII intact bilaterally Gait exam (Neuro): Normal gait present Extrem: Other: Left ankle with appreciable swelling and tenderness greatest to medial aspect. ROM intact with discomfort. Neurovascularly intact. No crepitus/erythema or ecchymosis. Course Course Course Narrative: XR ankle LT min 3V IMPRESSION: 1. No acute fracture or dislocation. 2. Sharp plantar calcaneal spur. > aircast applied and crutches offered to patient. Results discussed with patient including worrisome signs and symptoms and strict return precautions, and when to return to the emergency department. They verbalized understanding and feel safe for discharge at this time. Medical Decision Making Medical Decision Making MDM Narrative: 58-year-old female with a past medical history of factor 5 Leiden, HLD, renal stones, RLS. GERD, CVA, asthma, fibromyalgia, HTN, diabetes, presenting to the ED complaining of left ankle pain and swelling s/p rolling yesterday while walking to vehicle. On exam vital signs stable, NAD, nontoxic appearing ph ysical exam as noted above. Concern for fracture vs sprain. No evidence of septic joint. Unlikely a ruptured Achilles tendon or DVT Plan: X-ray Please refer to course for remaining clinical decision making, interpretation of labs/imaging results, and discussions with consultants and/or family members. Differential Diagnosis Differential Diagnoses: The differential diagnosis associated with the presentation includes As above Radiology Impression Discussion of test interpretation with radiology: I have reviewed the radiologist's reading. External Record Review External record reviewed: Inpatient record, Office record, Outpatient record, Prior outpatient labs, Prior outpatient radiology, Primary care record and Outside ED record Tests considered The following testing was considered but not selected: As above Discharge Plan Discharge Clinical Impression: Ankle sprain and strain Patient Disposition: Home, Self-Care Instructions: Ankle Sprain (DC) Additional Instructions: You sprained her ankle, no fracture Wear Aircast for comfort and stability Ice and elevate Use crutches as needed Bear weight as tolerated Take Tylenol and Motrin for pain Follow-up with your doctor Prescriptions: No Action multivitamin Tablet 1 tab PO DAILY amlodipine 5 mg tablet 5 mg PO BEDTIME gabapentin 300 mg capsule 300 mg PO QAM Rx Instructions: and take 900 mg po at bedtime pravastatin 20 mg tablet 20 mg PO BEDTIME zolpidem 5 mg tablet 5 mg PO BEDTIME albuterol sulfate [Ventolin HFA] 90 mcg/actuation Hfa Aerosol Inhaler 2 puff INHALATION Q4-6H PRN (Reason: Shortness Of Breath Or Wheezing) lisinopril 40 mg tablet 40 mg PO DAILY fluticasone propionate [Flovent HFA] 110 mcg/actuation Hfa Aerosol Inhaler 1 puff INHALATION BID cyclobenzaprine 5 mg tablet 5 mg PO BEDTIME PRN (Reason: muscle spasm) duloxetine 60 mg capsule,delayed release(DR/EC) 60 mg PO DAILY omeprazole 20 mg Tablet,Delayed Release (Dr/Ec) 20 mg PO BEDTIME Referrals: Denise Case MD [Primary Care Provider] - 1 week Stand Alone Forms: Work/School Release Interventions: ED Discharge Assessment Last Done: 10/17/23 08:27 Discharge Date/Time: 10/17/23 08:29 Print Language: Divehi
[2023-10-17 08:27] VITALS: BP 151/78; PULSE 73; RESP 18; TEMP 36.7; O2SAT 98
== END 2023-10-17 08:29 | disposition home or self-care (01) ==
PROVIDERS: Emergency Provider Emergency Medicine; PCP Internal Medicine
DX: S93.402A Sprain of unspecified ligament of left ankle, initial encounter (principal); M25.572 Pain in left ankle and joints of left foot; X50.1XXA Overexertion from prolonged static or awkward postures, initial encounter; Y93.89 Activity, other specified; Y92.89 Other specified places as the place of occurrence of the external cause; Y99.8 Other external cause status; Z79.899 Other long term (current) drug therapy
CPT/HCPCS: 73610; 99283

== ENCOUNTER 2024-09-29 07:06 | Emergency (ER) | payer BC, SELFPAY ==
--- NOTE | ~2024-09-29 | XR_ITS ---
EXAMINATION: XR CERVICAL SPINE CLINICAL INFORMATION: pain COMPARISON: None available. TECHNIQUE: AP, lateral and atlantoodontoid view FINDINGS: Endocervical junction is intact. Multilevel marginal osteophyte formation and endplate sclerosis and decreased intervertebral disc height pronounced at C5-6 and C6-7 C7-T1. Grade 1 anterolisthesis C5-6. Kyphotic deformity apex at C5-6. Bilateral facet joint hypertrophy pronounced on the left side from C3-4 to C6-7. Rudimentary ribs, C7. Upper airways patent. No lytic or blastic lesions. XR/XR cervical spine 3V IMPRESSION: Multilevel cervical spondylosis with a [place] deformity and a grade 1 anterolisthesis C5-6. Bilateral rudimentary ribs, C7. Electronically signed by: Mike Salazar MD 09/29/2024 10:13 AM EDT
[2024-09-29 07:08] VITALS: BP 143/69; PULSE 97; RESP 18; TEMP 36.6; O2SAT 98; BMI 35.3
[2024-09-29 08:11] VITALS: BP 140/63; RESP 16; O2SAT 99
--- NOTE | 2024-09-29 08:15 | PC.NURSE ---
Pt roomed and placed on 03/05 monitor- states neck pain started a few days ago and she recalls no [id number], started spontaneously. Radiates to shoulder left arm and clavicle area, Hurts when laying in wrong position and reports difficulty sleeping due to inability to get comfortable. Pt states walking around at work hurt a lot
[2024-09-29 10:16] VITALS: BP 122/55; PULSE 67; RESP 14; TEMP 36.6; O2SAT 99
--- NOTE | 2024-09-29 10:24 | ED.GENADULT ---
HPI - General Adult General Chief complaint: Neck Pain/Injury Stated complaint: Neck injury Time Seen by Provider: 09/29/24 09:08 Source: patient, RN notes reviewed and old records reviewed Mode of arrival: ambulatory Limitations: no limitations History of Present Illness ED Provider: Kiki PENNY narrative: 59-year-old female presents for evaluation of neck pain. She reports that she has had neck pain radiating to her left shoulder/arm for about 10 days now. The pain is worse with movement. She denies any falls or specific traumas causing her pain. 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 She denies any heavy lifting Denies any numbness or tingling to the area Denies any fevers, chills. She has been using ibuprofen/Tylenol intermittently for her pain with some improvement Related Data Home Medications ?Medication ?Instructions ?Recorded ?Confirmed albuterol sulfate 90 mcg/actuation 2 puff inhalation Q4-6H PRN 08/14/23 08/14/23 aerosol inhaler (Ventolin HFA) Shortness Of Breath Or Wheezing amlodipine 5 mg tablet 5 mg PO BEDTIME 08/14/23 08/14/23 cyclobenzaprine 5 mg tablet 5 mg PO BEDTIME PRN muscle spasm 08/14/23 08/14/23 duloxetine 60 mg capsule,delayed 60 mg PO DAILY 08/14/23 08/14/23 release fluticasone propionate 110 1 puff inhalation BID 08/14/23 08/14/23 mcg/actuation HFA aerosol inhaler gabapentin 300 mg capsule 300 mg PO QAM 08/14/23 08/14/23 lisinopril 40 mg tablet 40 mg PO DAILY 08/14/23 08/14/23 multivitamin 1 tab PO DAILY 08/14/23 08/14/23 omeprazole 20 mg tablet,delayed 20 mg PO BEDTIME 08/14/23 08/14/23 release pravastatin 20 mg tablet 20 mg PO BEDTIME 08/14/23 08/14/23 zolpidem 5 mg tablet 5 mg PO BEDTIME insomnia 08/14/23 08/14/23 Previous Rx's ?Medication ?Instructions ?Recorded cyclobenzaprine 10 mg tablet 10 mg PO TID PRN muscle spasm #20 09/29/24 tabs prednisone 20 mg tablet 40 mg (2 x 20 mg) PO DAILY #10 tabs 09/29/24 Allergies Allergy/AdvReac Type Severity Reaction Status Date / Time amoxicillin (From Augmentin) Allergy Intermediate Fever Verified 09/29/24 07:09 clavulanic acid (From Allergy Intermediate Fever Verified 09/29/24 07:09 Augmentin) Penicillins (PCN) Allergy Intermediate Hives Verified 09/29/24 07:09 hydrocodone AdvReac Intermediate Vomiting Verified 09/29/24 07:09 oxycodone AdvReac Intermediate Vomiting Verified 09/29/24 07:09 Review of Systems Constitutional: Constitutional: Denies body ache(s), Denies fever(s) and Denies headache(s) ENT: Denies headache(s) and Reports neck pain Cardiovascular: Cardiovascular: Denies chest pain Musculoskeletal: Musculoskeletal: Reports neck pain, Denies numbness, Reports radiating pain into limb, Reports stiffness and Denies tingling Integumentary/Breasts: Skin/Breast: Denies rash Neurologic: Denies headache(s), Denies numbness and Denies tingling PMFSH Past Medical History Medical History Family history of anesthesia complication Back pain Arthritis Factor V Leiden Hyperlipemia Renal stones RLS (restless legs syndrome) Migraines Hepatic steatosis GERD (gastroesophageal reflux disease) CVA (cerebral vascular accident) Asthma Fibromyalgia HTN (hypertension) Diabetes Surgical History History of bilateral carpal tunnel release H/O colonoscopy History of extraction of renal calculus Social History Social History Housing Other:: 2 family house Are you a primary home care aide to a significant other at home: No Do you presently have visiting nurse or other home services: No Patient Tobacco Use Status: Never used Tobacco Smoked in Last 30 Days: No Use of substances other than those prescribed or required for medical reasons: No Advance Directives: No Advance Directives Information Provided: No Do you have a plan to hurt others: No Plan Physical Exam ED Vital Signs: Vital Signs - 24 hr 09/29/24 07:08 09/29/24 08:11 09/29/24 10:16 Temperature 98 F 97.9 F Pulse Rate 97 67 Respiratory Rate 18 16 14 Blood Pressure 143/69 H 140/63 H 122/55 L Pulse Oximetry 98 99 99 Oxygen Delivery Method Room Air Room Air Room Air 09/29/24 10:43 Temperature 97.9 F Pulse Rate 67 Respiratory Rate 14 Blood Pressure 122/55 L Pulse Oximetry 99 Oxygen Delivery Method Room Air BMI result Body Mass Index 35.3 Const General: healthy appearing, comfortable, no acute distress, alert and awake Nutritional Appearance: well nourished Orientation/consciousness: patient oriented x3 HENMT Head: Yes normocephalic and Yes atraumatic Eyes Eyelids: Yes eyelids normal Conjunctivae: conjunctivae normal Sclerae: sclerae normal Corneas: corneas normal Pupils: Equal, round and reactive pupils present EOM: EOMs intact bilaterally Neck Neck: Yes full ROM Resp Effort & Inspection: normal respiratory effort, able to speak in complete sentences and not labored Cardio Rate: regular rate Rhythm: regular rhythm GI Inspection: No distended Palpation (GI): Soft to palpation, not firm, nontender, no guarding and not rigid Skin General skin exam: elasticity normal Neuro Other: There is no midline cervical spine tenderness. No step-offs or deformities. There is some trapezius muscle group tenderness bilaterally. Patient has pain with abduction or left upper extremity above her shoulder. General: patient oriented x3 Cranial nerves: Yes Equal, round and reactive pupils present and Yes Bilaterally intact EOM present Cognition (Neuro): normal cognition Extrem Other: Moving all extremities well without any obvious deformities Medications Administered Discontinued Medications Generic Name Dose Route Start Last Admin Trade Name Freq PRN Reason Stop Dose Admin Ketorolac Tromethamine 30 mg 09/29/24 09:54 09/29/24 09:59 Ketorolac Tromethamine 30 Mg/Ml Vial IM 09/29/24 09:55 30 mg ONCE ONE Administration Medical Decision Making Medical Decision Making MDM Narrative: 59-year-old female presents for evaluation of neck pain for about 10 days. No fevers or chills to suggest infectious process. There has not been any significant trauma, I have a low suspicion for she will require spine fracture. Given her job that she is seated and looking at a computer screen most of the day, so if her pain may be related to posture. We will get an x-ray to evaluate for osteoarthritis. Differential Diagnosis Differential Diagnoses: The differential diagnosis associated with the presentation includes Cervical radiculopathy Osteoarthritis Spasmodic torticollis Neck pain Independent Interpretation I performed an independent interpretation of an: Plain X-Ray Interpretation: Agree with Radiology interpretation Radiology Impression Discussion of test interpretation with radiology: I have reviewed the radiologist's reading. Radiologist Impression: FINDINGS: Endocervical junction is intact. Multilevel marginal osteophyte formation and endplate sclerosis and decreased intervertebral disc height pronounced at C5-6 and C6-7 C7-T1. Grade 1 anterolisthesis C5-6. Kyphotic deformity apex at C5-6. Bilateral facet joint hypertrophy pronounced on the left side from C3-4 to C6-7. Rudimentary ribs, C7. Upper airways patent. No lytic or blastic lesions. XR/XR cervical spine 3V IMPRESSION: Multilevel cervical spondylosis with a [place] deformity and a grade 1 anterolisthesis C5-6. Bilateral rudimentary ribs, C7. Electronically signed by: Mike Salazar MD 09/29/2024 10:13 AM EDT RP Discharge Plan Discharge Clinical Impression: Cervical radiculopathy Patient Disposition: Home, Self-Care Instructions: Cervical Radiculopathy (ED) Additional Instructions: Your x-ray does not show any fractures but does show anterior listhesis and arthritis. I recommend taking ibuprofen and Tylenol as needed for pain. You may use prednisone 40 mg daily for the next 5 days to help with inflammation. Take cyclobenzaprine as needed for muscle spasms. This may make you drowsy, do not drink alcohol or drive after taking it. I also recommend warm compresses Follow-up with your primary doctor, you may benefit from an outpatient MRI Prescriptions: New cyclobenzaprine 10 mg tablet 10 mg PO TID PRN (Reason: muscle spasm) Qty: 20 0RF prednisone 20 mg tablet 40 mg PO DAILY Qty: 10 0RF No Action multivitamin Tablet 1 tab PO DAILY amlodipine 5 mg tablet 5 mg PO BEDTIME gabapentin 300 mg capsule 300 mg PO QAM Rx Instructions: and take 900 mg po at bedtime pravastatin 20 mg tablet 20 mg PO BEDTIME zolpidem 5 mg tablet 5 mg PO BEDTIME albuterol sulfate [Ventolin HFA] 90 mcg/actuation Hfa Aerosol Inhaler 2 puff INHALATION Q4-6H PRN (Reason: Shortness Of Breath Or Wheezing) lisinopril 40 mg tablet 40 mg PO DAILY fluticasone propionate [Flovent HFA] 110 mcg/actuation Hfa Aerosol Inhaler 1 puff INHALATION BID cyclobenzaprine 5 mg tablet 5 mg PO BEDTIME PRN (Reason: muscle spasm) duloxetine 60 mg capsule,delayed release(DR/EC) 60 mg PO DAILY omeprazole 20 mg Tablet,Delayed Release (Dr/Ec) 20 mg PO BEDTIME Stand Alone Forms: Work/School Release Interventions: ED Discharge Assessment Last Done: 09/29/24 10:43 Discharge Date/Time: 09/29/24 10:47 Print Language: Japanese
[2024-09-29 10:43] VITALS: BP 122/55; PULSE 67; RESP 14; TEMP 36.6; O2SAT 99
== END 2024-09-29 10:47 | disposition home or self-care (01) ==
PROVIDERS: Emergency Provider Emergency Medicine; PCP Internal Medicine
DX: M54.12 Radiculopathy, cervical region (principal); M54.2 Cervicalgia; Z79.899 Other long term (current) drug therapy
CPT/HCPCS: 72040; 96372; 99284; J1885

== ENCOUNTER → 2024-09-29 09:54 | Outpatient (BNV) | payer BC, SELFPAY | PROVIDERS: Emergency Provider Emergency Medicine; PCP Internal Medicine; Visit Provider Radiology Diagnostic Radiology | DX: M54.2 Cervicalgia (principal) | CPT/HCPCS: 72040 ==